=== PATIENT | female | born 1990 | race Caucasian/White ===

== ENCOUNTER → 2016-10-04 | Emergency (ER) | payer OTHER ==
[~2016-10-04] MED LIST: CIPROFLOXACIN 250 MG TABLET (RESTRICTED TO ID) PO ONE
[2016-10-04 03:22] VITALS: BP 133/87; PULSE 90; TEMP 98.3; BMI 26.5
--- NOTE | 2016-10-04 03:40 | PDOC ---
History of Present Illness - General Chief Complaint: Diarrhea Stated Complaint: DIARRHEA Time Seen by Provider: 10/04/16 03:24 - History of Present Illness Initial Comments: 10/04/16 03:32 CHIEF COMPLAINT: diarrhea x 4 days HISTORY OF PRESENT ILLNESS: 26 yo F with no PMH presents to ED with 4 days of diarrhea after recent travel to [place] Patient denies any vomiting but states " I [place] feel a little something in my throat but I haven't had any vomiting." She denies any fever or chills. PAST MEDICAL HISTORY: Denies past medical history FAMILY HISTORY: Denies SOCIAL HISTORY:Denies tobacco, alcohol, illicit drug use. SURGICAL HISTORY: Denies ALLERGIES: No known drug allergies REVIEW OF SYSTEMS General/Constitutional: Denies fever or chills. Denies weakness, weight change. HEENT: Denies change in vision. Denies ear pain or discharge. Denies sore throat. Cardiovascular: Denies chest pain or shortness of breath. Respiratory: Denies cough, wheezing, or hemoptysis. Gastrointestinal: Diarrhea x 4 days. Denies rectal bleeding. Genitourinary: Denies dysuria, frequency, or change in urination. Musculoskeletal: Denies joint or muscle swelling or pain. Denies neck or back pain. Skin and breasts: Denies rash or easy bruising. PHYSICAL EXAM General Appearance: Well-appearing, appropriately dressed. No apparent distress , no intoxication. HEENT: EOMI, PERRLA, normal ENT inspection, normal voice, TMs normal, pharynx normal. No conjunctival pallor. No photophobia, scleral icterus. Respiratory/Chest: Lungs CTAB Cardiovascular: RRR. S1, S2. Gastrointestinal/Abdominal: Normal bowel sounds. Abdomen soft, non-distended. No tenderness or rebound tenderness. No organomegaly, pulsatile mass, guarding , hernia, hepatomegaly, splenomegaly. Musculoskeletal/Extremities: Normal inspection. FROM of all extremities, normal capillary refill. Pelvis Stable. No CVA tenderness. No tenderness to extremities, pedal edema, swelling, erythema or deformity. Integumentary: Appropriate color, dry, warm. No cyanosis, erythema, jaundice or rash Neurologic: yard conductor II-XII intact. Fully oriented, alert. Appropriate mood/affect. Motor strength 5/5. No appreciable EOM palsy, facial droop or sensory deficit. Past History - Past Medical History Allergies/Adverse Reactions: Allergies Allergy/AdvReac Type Severity Reaction Status Date / Time No Known Allergies Allergy Verified 10/04/16 03:11 Home Medications: Ambulatory Orders Ciprofloxacin HCl [Cipro] 500 mg PO BID #5 tablet 10/04/16 - Psycho/Social/Smoking Cessation Hx Anxiety: No Suicidal Ideation: No Smoking Status: No Smoking History: Never smoked Have you smoked in the past 12 months: No Number of Cigarettes Smoked Daily: 0 Hx Alcohol Use: No Drug/Substance Use Hx: No *Physical Exam - Vital Signs Last Vital Signs Temp Pulse Resp BP Pulse Ox 98.3 F 90 16 133/87 97 10/04/16 03:15 10/04/16 03:15 10/04/16 03:15 10/04/16 03:15 10/04/16 03:15 *DC/Admit/Observation/Transfer Diagnosis at time of Disposition: Travelers' diarrhea - Discharge Dispostion Disposition: HOME Admit: No - Prescriptions Prescriptions: Ciprofloxacin HCl [Cipro] 500 mg PO BID #5 tablet - Referrals Referrals: Ilia Ko MD [Primary Care Provider] - - Patient Instructions Printed Discharge Instructions: DI for Diarrhea and Traveler's Diarrhea -- Adult Additional Instructions: Please take medication as prescribed and follow up with your primary care doctor next week. As discussed, please drink plenty of fluids. Use baby wipes instead of toilet paper to help with the pain in your rectum. If you develop fever, vomiting, or your diarrhea does not resolve with the antibiotics, or you have any new or worsening symptoms, please return to the ER.
== END | disposition home or self-care (01) ==
LOC: JER 03:04
DX: R19.7 Diarrhea, unspecified (principal)
CPT/HCPCS: 99281-25